=== PATIENT | male | born 1995 | race Caucasian/White ===

== ENCOUNTER 2021-08-24 12:44 | Outpatient (REF) | payer OTHER, SELFPAY ==
[2021-08-25 15:28] LABS: Chlamydia Result Negative (Negative); GC Result Negative (Negative)
== END 2021-08-24 12:45 | disposition home or self-care (01) ==
LOC: LBN 12:44
PROVIDERS: PCP Nurse Practitioner Adult Health; Visit Provider Nurse Practitioner Adult Health
DX: Z11.3 Encounter for screening for infections with a predominantly sexual mode of transmission (principal)
CPT/HCPCS: 87491; 87591

== ENCOUNTER 2021-10-16 15:55 | Emergency (ER) | payer OTHER, SELFPAY ==
[2021-10-16] VITALS (26 sets, daily range): BP systolic 112–122; BP diastolic 63–71; PULSE 68–93; RESP 14–26; TEMP 36.8; O2SAT 97–99
--- NOTE | 2021-10-16 15:45 | RT.EKG_ITS ---
APPROVED REPORT Exam: Resting ECG Reason for Exam: chest pain Patient Location: E HR:79 bpm ECG Measurements Heart Rate 79 AXIS IL 157 P 42 QRSd 110 QRS 20 QT 367 T 0 QTc 421 Conclusion Sinus rhythm...normal P axis, V-rate 60- 99. Sinus. Normal axis. No STEMI. I have reviewed and interpreted ECG and agree with software generated interpretation.
[2021-10-16 16:39] LABS: Abs Immature Grans 0.01 10^3/uL (0.0-0.06); Absolute Basophil Count 0.03 10^3/uL (0.0-0.2); Absolute Eosinophil Count 0.16 10^3/uL (0.0-0.7); Absolute Lymphocyte Count 2.11 10^3/uL (1.2-3.4); Absolute Monocyte Count 0.64 10^3/uL (0.1-0.8); Absolute Neutrophil Count 3.88 10^3/uL (1.2-6.7); Basophils % 0.4; Eosinophils % 2.3; HCT 46.5 % (40.0-50.0); HGB 15.4 g/dL (13.5-17.5); Immature Grans % 0.1; Lymphocytes % 30.9; MCH 28.7 pg (27.0-33.0); MCHC 33.1 % (32.0-36.0); MCV 86.6 fL (80-95); Monocytes % 9.4; Neutrophils % 56.9; Nucleated RBC 0 %; Platelet Count 385 10^3/uL (130-400); RBC 5.37 10^6/uL (4.36-5.78); RDW 12.8 % (11.8-14.1); WBC 6.83 10^3/uL (4.4-10.8)
--- NOTE | 2021-10-16 17:00 | DI.RAD_ITS ---
Exam(s) XR CHEST 2V PA LATERAL EXAM: XR CHEST 2V PA LATERAL CLINICAL HISTORY: L sided chest pain, r/o acute disease TECHNIQUE: 2D digital imaging was performed. COMPARISON: No exams were available for comparison FINDINGS: MEDIASTINUM: Normal. HEART: Normal. PULMONARY VASCULATURE: Normal. LUNGS: Clear. PLEURAL SPACE: No pleural effusion or pneumothorax. BONE:Unremarkable for age. IMPRESSION: No acute abnormality. DATA REPOSITORY: RADIATION DOSE DELIVERED:
[2021-10-16 17:08] LABS: ALT 43 U/L (16-63); AST 22 U/L (15-37); Alkaline Phosphatase 63 U/L (46-116); Anion Gap 7.6 mmol/L (3-11); BUN 13 mg/dL (7-18); Bilirubin, Total 0.4 mg/dL (0.2-1.0); CO2 27.4 mmol/L (21.0-32.0); CREATININE 0.9 mg/dL (0.70-1.30); Calcium 8.8 mg/dL (8.5-10.1); Chloride 104 mmol/L (98-107); Glucose 89 mg/dL (74-106); Magnesium 2.3 mg/dL (1.8-2.4); Potassium 3.5 mmol/L (3.5-5.1); Sodium 139 mmol/L (136-145); Total Protein 7.9 g/dL (6.4-8.2); Troponin I < 50 ng/L (<or=60)
[2021-10-16] MEDS: Lidocaine 5% Patch 1 PATCH TP (17:23)
[2021-10-16] MEDS: Ketorolac 30 MG/ML VIAL IVP (17:23)
[2021-10-16] MEDS: Normal Saline 1,000 ML 1000 ML IV (17:36)
[2021-10-16 17:38] LABS: D-Dimer 277 ng/mlFEU (<500)
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
--- NOTE | 2021-10-16 18:10 | DI.VRAD_ITS ---
PROCEDURE INFORMATION: Exam: XR Chest Exam date and time: 10/16/2021 5:13 PM Age: 26 years old Clinical indication: Other: L sided chest pain, R/O acute disease TECHNIQUE: Imaging protocol: XR of the chest. Views: 2 views. COMPARISON: No relevant prior studies available. FINDINGS: Lungs: Unremarkable. No consolidation. Pleural spaces: Unremarkable. No pleural effusion. No pneumothorax. Heart/Mediastinum: Unremarkable. No cardiomegaly. Bones/joints: Unremarkable. IMPRESSION: No acute findings. Dictated and Authenticated by: Antwan Soni MD. Ordering:BONNIE Fernandez MD
[2021-10-16 19:04] LABS: Lipase 65 U/L (73-393)
== END 2021-10-16 19:39 | disposition home or self-care (01) ==
PROVIDERS: Emergency Provider Physician Assistant; PCP Nurse Practitioner Adult Health
DX: R07.89 Other chest pain (principal)
CPT/HCPCS: 36415; 80053; 83690; 93005; 96361; 96374; 99284; 71046; 83735; 84484; 85025; 85379; 93010; 99283; J1885

== ENCOUNTER 2022-03-28 12:39 | Emergency (ER) | payer OTHER, SELFPAY ==
--- NOTE | 2022-03-28 12:45 | RT.EKG_ITS ---
APPROVED REPORT Exam: Resting ECG Reason for Exam: chest pain Patient Location: E HR:75 bpm ECG Measurements Heart Rate 75 AXIS MO 157 P 37 QRSd 109 QRS 26 QT 367 T 1 QTc 409 Conclusion Sinus rhythm...normal P axis, V-rate 60- 99
[2022-03-28 12:48] VITALS: BP 135/70; PULSE 70; RESP 18; TEMP 36.8; O2SAT 100
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
--- NOTE | 2022-03-28 14:14 | DI.CT_ITS ---
Exam(s) CT ABDOMEN PELVIS WO EXAM: CT ABDOMEN PELVIS WO CLINICAL HISTORY: left upper abdomen pain. TECHNIQUE: Imaging Protocol: Axial computed tomography images with coronal and sagittal reformatted images were created and reviewed CONTRAST MATERIAL: Intravenous: none Oral: None COMPARISON: No exams were available for comparison FINDINGS: VISUALIZED LUNG BASES: No nodules nor pleural effusions evident. ABDOMEN: There is no ascites. LIVER: There are no obvious focal hepatic lesions evident of this noninfused study. GALLBLADDER/BILIARY: The gallbladder is somewhat contracted. No obvious calcified gallstones. No ga llbladder wall edema. No pericholecystic fluid. CBD is not dilated. PANCREAS: No evidence of pancreatic mass nor dilatation of the pancreatic duct. SPLEEN: Spleen is not enlarged. No obvious intrasplenic lesions. ADRENALS: There are no significant adrenal masses. KIDNEYS:No cysts evident. No solid renal masses. No calculi nor hydronephrosis. . ABDOMINAL AORTA: Abdominal aorta is not enlarged. LYMPH NODES: There are multiple slightly prominent mesenteric lymph nodes noted throughout the mesent salvador, slightly more so to the right of center. The largest of these lymph nodes measures 10 by 7 mill imeters. ABDOMINAL WALL: No evidence of significant anterior abdominal wall nor inguinal hernia. GI: There is no evidence of bowel obstruction, free air, nor abscess. PELVIS: LYMPH NODES: No inguinal adenopathy GI: Appendix surgically absent. No abnormal collection in this region. There are few small lymph no marii in the right lower quadrant mesentery, these measuring up to 9 millimeters size. No sigmoid dive rticular disease. URINARY BLADDER: No calculi nor obvious masses evident REPRODUCTIVE: Prostate and seminal vesicles unremarkable. OSSEOUS: No significant osseous lesions. Sacroiliac joints unremarkable. No fractures. IMPRESSION: 1. The appendix is surgically absent. 2. There are slightly enlarged lymph nodes throughout the mesentery measuring up to 1 cm size. Proba gulshan an element of mesenteric adenitis. There is no splenomegaly. 3. There is no ascites. Report called by myself to ER physician RADIATION DOSE DELIVERED: 930.42mGy.cm Total DLP DATA REPOSITORY: All CT scans at this facility are submitted to the National Radiology Data Registry (NRDR) Dose Index Registry (DIR) with the [employer] ([employer]). RADIATION OPTIMIZATION: All CT scans at this facility use at least one of these dose optimization te chniques: automated exposure control; mA and/or kV adjustment per patient size (includes targeted exa ms where dose is matched to clinical indication); or iterative reconstruction.
[2022-03-28 14:20] VITALS: PULSE 70; RESP 13
[2022-03-28 14:34] LABS: Abs Immature Grans 0.01 10^3/uL (0.0-0.06); Absolute Basophil Count 0.02 10^3/uL (0.0-0.2); Absolute Eosinophil Count 0.09 10^3/uL (0.0-0.7); Absolute Lymphocyte Count 0.98 10^3/uL (1.2-3.4); Absolute Neutrophil Count 2.02 10^3/uL (1.2-6.7); Basophils % 0.6; Eosinophils % 2.6; HGB 15.4 g/dL (13.5-17.5); Immature Grans % 0.3; Lymphocytes % 27.8; MCH 28.3 pg (27.0-33.0); MCHC 33.5 % (32.0-36.0); MCV 85 fL (80-95); MPV 9.1 fL (8.0-11.0); Monocytes % 11.4; Neutrophils % 57.3; Platelet Count 290 10^3/uL (130-400); RBC 5.44 10^6/uL (4.36-5.78); RDW 12.6 % (11.8-14.1); RDW-SD 38.4 fL; WBC 3.52 10^3/uL (4.4-10.8)
[2022-03-28 14:51] VITALS: PULSE 74; RESP 16; O2SAT 99
[2022-03-28 14:54] LABS: ALT 49 U/L (16-63); AST 24 U/L (15-37); Albumin 4.4 g/dL (3.4-5.0); Alkaline Phosphatase 57 U/L (46-116); Anion Gap 6.7 mmol/L (3-11); BUN 10 mg/dL (7-18); Bilirubin, Total 0.3 mg/dL (0.2-1.0); CO2 30.3 mmol/L (21.0-32.0); CREATININE 0.9 mg/dL (0.70-1.30); Calcium 8.9 mg/dL (8.5-10.1); Chloride 104 mmol/L (98-107); Glucose 95 mg/dL (74-106); Lipase 96 U/L (73-393); Potassium 3.9 mmol/L (3.5-5.1); Sodium 141 mmol/L (136-145); Troponin I < 50 ng/L (<or=60)
[2022-03-28 15:00] VITALS: PULSE 67; RESP 20; O2SAT 98
[2022-03-28 15:01] VITALS: BP 114/67; PULSE 64; PULSE 68; RESP 20; O2SAT 98
[2022-03-28 15:44] VITALS: BP 114/67; PULSE 64; RESP 20; TEMP 36.6; O2SAT 98
[2022-03-29 10:37] LABS: Lyme Ab w Rflx to Lyme Confirm Negative (Negative)
[2022-03-30 23:51] LABS: Anaplasma phagocytophilum Negative (Negative); B. miyamotoi PCR Negative (Negative); Babesia divergens/MO-1 Negative (Negative); Babesia duncani Negative (Negative); Babesia microti Negative (Negative); Ehrlichia chaffeensis Negative (Negative); Ehrlichia ewingii/canis Negative (Negative); Ehrlichia muris eauclairensis Negative (Negative)
== END 2022-03-28 15:45 | disposition home or self-care (01) ==
PROVIDERS: Emergency Provider Emergency Medicine; PCP Nurse Practitioner Adult Health
DX: R10.12 Left upper quadrant pain (principal); R19.7 Diarrhea, unspecified; R07.89 Other chest pain; R10.814 Left lower quadrant abdominal tenderness
CPT/HCPCS: 80053; 83690; 87798; 93005; 96374; 99284; 74176; 83735; 84484; 85025; 86618; 93010

== ENCOUNTER 2023-11-26 18:47 | Outpatient (REF) | payer OTHER, SELFPAY | END 2023-11-26 18:48 | disposition home or self-care (01) | LOC: LBN 18:47 | PROVIDERS: PCP Nurse Practitioner Adult Health; Visit Provider Nurse Practitioner Family | DX: J35.1 Hypertrophy of tonsils (principal) | CPT/HCPCS: 87070 ==